=== PATIENT | female | born 1985 | race Caucasian/White ===

== ENCOUNTER 2022-12-23 17:32 | Outpatient (CLI) | payer OTHER, SELFPAY | END 2022-12-23 17:33 | disposition home or self-care (01) | PROVIDERS: PCP Emergency Medicine; Visit Provider Emergency Medicine | DX: Z00.00 Encounter for general adult medical examination without abnormal findings (principal); D50.9 Iron deficiency anemia, unspecified; I10 Essential (primary) hypertension; Z13.1 Encounter for screening for diabetes mellitus | CPT/HCPCS: 80076; 82728; 84443 ==

== ENCOUNTER 2024-10-19 09:19 | Outpatient (CLI) | payer OTHER, SELFPAY | END 2024-10-19 09:20 | disposition home or self-care (01) | LOC: NFLDREF 10-21 21:53 | PROVIDERS: PCP Emergency Medicine; Referring Provider Emergency Medicine; Visit Provider Emergency Medicine | DX: Z00.00 Encounter for general adult medical examination without abnormal findings (principal); I10 Essential (primary) hypertension; Z86.2 Personal history of diseases of the blood and blood-forming organs and certain disorders involving the immune mechanism | CPT/HCPCS: 80048; 80061; 82728 ==